=== PATIENT | female | born 2000 | race Caucasian/White ===

== ENCOUNTER 2023-06-14 07:43 | Inpatient (IN) | payer OTHER, SELFPAY ==
[~2023-06-14] VITALS: Ht 167.6 cm; Wt 125.6 kg
[2023-06-14] VITALS (19 sets, daily range): BP systolic 94–146; BP diastolic 51–87
[2023-06-14] MEDS ORDERED: OXYTOCIN DRIP 30 UNITS in IV 1 EA IV PRN (08:05)
[2023-06-14] MEDS ORDERED: TRANEXAMIC ACID INJection 1,000 MG in NS 100 ML IV PRN (08:05)
[2023-06-14] MEDS ORDERED: METHYLERGONOVINE MALEATE 0.2MG/ML 1ML VIAL IM PRN (08:05)
[2023-06-14] MEDS ORDERED: CARBOPROST TROMETHAMINE 250 MCG/ML AMP IM PRN (08:05)
[2023-06-14] MEDS ORDERED: LIDOCAINE 1% MDV 20ML VIAL INFIL PRN (08:05)
[2023-06-14] MEDS ORDERED: ECOT81TA5 PO (08:21)
[2023-06-14] MEDS ORDERED: PRENTAB9 PO (08:21)
[2023-06-14 09:56] LABS: HEMATOCRIT 33.7 % (36.0-47.0); HEMOGLOBIN 11.6 g/dl (12.0-15.5); MEAN CORPUSCULAR HEMOGLOBIN 30.8 pg (27.0-33.0); MEAN CORPUSCULAR HGB CONC 34.4 g/dl (32.0-36.5); MEAN CORPUSCULAR VOLUME 89.4 fl (80.0-96.0); PLATELET COUNT, AUTOMATED 235 10^3/uL (150-450); RED BLOOD COUNT 3.77 10^6/uL (4.00-5.40)
[2023-06-14] MEDS: miSOPROStol 50MCG 1/2 TABLET PO SCH (10:27)
[2023-06-14] MEDS ORDERED: ACETAMINOPHEN 500 MG TAB PO PRN (15:30)
[2023-06-14] MEDS: ACETAMINOPHEN 500 MG TAB PO PRN (15:37)
[2023-06-14] MEDS ORDERED: diphenhydrAMINE 50MG/ML VIAL IV PRN (19:45)
[2023-06-14] MEDS ORDERED: NALOXONE INJ 0.4MG/1ML VIAL IV PRN (19:45)
[2023-06-14] MEDS ORDERED: EPIDURAL/PCA KEYS XX PRN (19:45)
[2023-06-14] MEDS: FENTANYL/ROPIVACAINE/NACL BAG 100 ML EPIDURAL SCH (19:51)
[2023-06-14] MEDS: LACTATED RINGER'S 1000 ML IV STA (19:53)
[2023-06-14] MEDS: LR 1,000 ML IV SCH (19:56)
[2023-06-14] MEDS: PENICILLIN G POTASSIUM 5 MU IV 5 MU in D5W MINI-BAG PLUS 100 ML IV STA (21:15)
[2023-06-14] MEDS: ONDANSETRON 4MG 2ML VIAL IV PRN (22:50)
[2023-06-15] VITALS (51 sets, daily range): BP systolic 83–143; BP diastolic 49–74; O2SAT 97
[2023-06-15] MEDS: LR 500 ML IV PRN (00:29)
[2023-06-15] MEDS: ePHEDrine SULFATE 25 MG/5 ML(5MG/ML) SYRINGE IVP PRN (00:29)
[2023-06-15] MEDS: PEN G POT 3,000,000 UNIT/50 ML 3,000,000 UNIT in IV 1 EA IV SCH (01:30)
[2023-06-15] MEDS: OXYTOCIN DRIP 30 UNITS in IV 1 EA IV SCH (01:56)
[2023-06-15] MEDS ORDERED: DIBUCAINE 1% OINTMENT 30GM TOP PRN (18:55)
[2023-06-15] MEDS ORDERED: ACETAMINOPHEN 500 MG TAB PO PRN (18:55)
[2023-06-15] MEDS ORDERED: MOM 30ML SUSPENSION UDC PO PRN (18:55)
[2023-06-15] MEDS ORDERED: RHOGAM 300MCG (1500IU) INJ IM SCH (18:55)
[2023-06-15] MEDS: DOCUSATE SODIUM 100MG CAPSULE PO SCH (21:06)
[2023-06-16] MEDS: IBUPROFEN 800 MG TAB PO PRN (01:27)
[2023-06-16 05:45] VITALS: BP 109/52; O2SAT 100
[2023-06-16] MEDS ORDERED: IBUP80TA PO (07:29)
[2023-06-16] MEDS ORDERED: ACET-683 PO (07:29)
[2023-06-16] MEDS ORDERED: COLA100C5 PO (07:29)
[2023-06-16] MEDS: FERROUS SULFATE 325MG TAB PO SCH (09:10)
[2023-06-16] MEDS: PRENATAL VITAMINS CHEWABLE TABLET PO SCH (09:10)
[2023-06-16 18:00] VITALS: BP 126/65; O2SAT 98
[2023-06-17] MEDS ORDERED: MEASLES,MUMPS,RUBELLA VACCINE INJ (MMR-II) SC.IMMUN ONE (09:00)
== END 2023-06-16 19:48 | disposition home or self-care (01) | DRG 807 ==
LOC: M LDI 07:43 → M OBS 06-15 20:38
PROVIDERS: ADMIT Obstetrics & Gynecology; ATTEND Obstetrics & Gynecology
PROC: 3E033VJ Introduction of Other Hormone into Peripheral Vein, Percutaneous Approach (ICD-10-PCS; 2023-06-14)
PROC: 3E0P7VZ Introduction of Hormone into Female Reproductive, Via Natural or Artificial Opening (ICD-10-PCS; 2023-06-14)
PROC: 10E0XZZ Delivery of Products of Conception, External Approach (ICD-10-PCS; principal; 2023-06-15)
DX: O24.429 Gestational diabetes mellitus in childbirth, unspecified control (principal); Z37.0 Single live birth; O99.214 Obesity complicating childbirth; Z88.8 Allergy status to other drugs, medicaments and biological substances; Z3A.39 39 weeks gestation of pregnancy